=== PATIENT | female | born 1980 | race Hispanic/Latino ===

== ENCOUNTER 2018-12-20 15:06 | Emergency (ER) | payer MEDICAID ==
[2018-12-20] MEDS ORDERED: ACETAMINOPHEN EXTRA STRENGTH 500 MG TABLET ONE (15:42)
[2018-12-20 15:46] LABS: BASOPHILS % (AUTO) 0.2 % (0.0-5.0); EOSINOPHILS % (AUTO) 0.3 % (0.0-8.0); HEMATOCRIT 31.5 % (36-48); LYMPHOCYTES % (AUTO) 5.6 % (21.0-51.0); MEAN CORPUSCULAR HEMOGLOBIN 24.3 pg (27.0-33.0); MEAN CORPUSCULAR HGB CONC 32.6 g/dL (32.0-36.0); MEAN CORPUSCULAR VOLUME 74.4 fL (79-99); MONOCYTES % (AUTO) 5.9 % (3.0-13.0); PLATELET COUNT (AUTO) 430 K/uL (130-400); RED BLOOD CELL COUNT(AUTO) 4.23 MIL/uL (4.00-5.50); RED CELL DISTRIBUTION WIDTH 16.3 % (11.0-15.5); WHITE BLOOD COUNT (AUTO) 15.1 K/uL (4.8-10.8)
[2018-12-20 15:56] LABS: CREATININE 0.9 mg/dL (0.5-1.5); POTASSIUM 4.1 mmol/L (3.5-5.1)
[2018-12-20 16:00] LABS: ALBUMIN 2.8 g/dL (3.5-5.0); BILIRUBIN,TOTAL 0.3 mg/dL (0.2-1.0)
[2018-12-20 16:13] LABS: B-TYPE NATRIURETIC PEPTIDE 30 pg/mL (0-100)
[2018-12-20 16:18] LABS: APPEARANCE,URINE Cloudy (CLEAR); BILIRUBIN,URINE Negative (NEGATIVE); COLOR,URINE Dark Yellow (YELLOW); GLUCOSE, URINE (UA) Negative (NEGATIVE); KETONES,URINE Trace mg/dL (NEGATIVE); LEUKOCYTE ESTERASE ,URINE Small (NEGATIVE); NITRATE,URINE Negative (NEGATIVE); OCCULT BLOOD,URINE Negative (NEGATIVE); PH,URINE 5.5 (5.0-8.0); PROTEIN,URINE POS 2+ mg/dL (NEGATIVE)
[2018-12-20 16:23] LABS: HCG,QUAL RESULT NEGATIVE (NEGATIVE)
[2018-12-20 16:51] LABS: BACTERIA,URINE Moderate /HPF (None Seen)
[2018-12-20 16:52] LABS: RBC,URINE 0-1 /HPF (0-1)
[2018-12-20 17:29] LABS: ERYTHROCYTE SEDIMENTATION RATE 95 MM/HR (0-20)
== END 2018-12-20 17:50 | disposition home or self-care (01) ==
LOC: EDH 15:06
DX: R60.0 Localized edema (principal); R50.9 Fever, unspecified; R23.8 Other skin changes; Z87.891 Personal history of nicotine dependence
CPT/HCPCS: 36415; 80053; 81001; 81025; 83880; 85025; 85651

== ENCOUNTER 2019-02-20 22:33 | Inpatient (IN) | payer MEDICAID ==
[~2019-02-20] VITALS: Ht 157.5 cm; Wt 102.5 kg
[2019-02-20 23:06] LABS: BILIRUBIN,URINE Negative (NEGATIVE); COLOR,URINE Yellow (YELLOW); GLUCOSE, URINE (UA) Negative (NEGATIVE); KETONES,URINE Negative (NEGATIVE); LEUKOCYTE ESTERASE ,URINE Trace (NEGATIVE); NITRATE,URINE Negative (NEGATIVE); OCCULT BLOOD,URINE Moderate (NEGATIVE); PROTEIN,URINE POS 1+ mg/dL (NEGATIVE)
[2019-02-20 23:09] LABS: APPEARANCE,URINE SLIGHTLY CLOUDY (CLEAR); HCG,QUAL RESULT NEGATIVE (NEGATIVE)
[2019-02-20 23:22] LABS: BACTERIA,URINE None Seen /HPF (None Seen); SQUAMOUS EPITHELIAL CELL,UR Rare /HPF (0-2); WBC,URINE 0-1 /HPF (0-1)
[2019-02-20] MEDS ORDERED: ONDANSETRON HCL 4 MG/2 ML VIAL ONE (23:41)
[2019-02-20] MEDS ORDERED: FAMOTIDINE/PF 20 MG/2 ML VIAL IV ONE (23:41)
[2019-02-20] MEDS ORDERED: SODIUM CHLORIDE 0.9% 1000ML 1,000 ML IV ONE (23:41)
[2019-02-20 23:49] LABS: BASOPHILS % (AUTO) 0.6 % (0.0-5.0); EOSINOPHILS % (AUTO) 0.2 % (0.0-8.0); HEMATOCRIT 34.8 % (36-48); LYMPHOCYTES % (AUTO) 5.3 % (21.0-51.0); MEAN CORPUSCULAR HEMOGLOBIN 24.2 pg (27.0-33.0); MEAN CORPUSCULAR HGB CONC 31.9 g/dL (32.0-36.0); MEAN CORPUSCULAR VOLUME 75.9 fL (79-99); MONOCYTES % (AUTO) 5.1 % (3.0-13.0); NEUTROPHILS % (AUTO) 88.8 % (40.0-77.0); PLATELET COUNT (AUTO) 319 K/uL (130-400); RED BLOOD CELL COUNT(AUTO) 4.58 MIL/uL (4.00-5.50); RED CELL DISTRIBUTION WIDTH 16.7 % (11.0-15.5); WHITE BLOOD COUNT (AUTO) 15.7 K/uL (4.8-10.8)
[2019-02-20 23:57] LABS: CREATININE 1.1 mg/dL (0.5-1.5); POTASSIUM 4.7 mmol/L (3.5-5.1)
[2019-02-20 23:58] LABS: INR 0.95 (0.85-1.15); PARTIAL THROMBOPLASTIN TIME 28.8 SEC (26.3-35.5)
[2019-02-21 00:03] LABS: ALBUMIN 3.5 g/dL (3.5-5.0); BILIRUBIN,TOTAL 0.4 mg/dL (0.2-1.0); TOTAL PROTEIN, SERUM 7.9 g/dL (6.0-8.3)
[2019-02-21] MEDS ORDERED: KETOROLAC TROMETHAMINE 30MG/ML ONE (00:49)
[2019-02-21] MEDS ORDERED: MORPHINE SULFATE 2 MG/ML 1ML SYG IV PRN (01:15)
[2019-02-21] MEDS ORDERED: ONDANSETRON HCL 4 MG/2 ML VIAL IV PRN (01:15)
[2019-02-21] MEDS ORDERED: ZOSYN 3.375GM+NS 50ML 50 ML IV ONE (01:25)
[2019-02-21] MEDS ORDERED: LACTATED RINGERS 1000ML 1,000 ML IV ONE (01:26)
[2019-02-21 02:09] LABS: CHOLESTEROL 172 mg/dL (<200); HDL CHOLESTEROL 149 mg/dL (35-85); LDL DIRECT 97 mg/dL (0-99); TRIGLYCERIDES 134 mg/dL (30-200)
[2019-02-21] MEDS ORDERED: PHARMACY COMMUNICATION MISC SCH (02:15)
[2019-02-21] MEDS: ZOSYN 3.375GM+NS 50ML 50 ML IV SCH ×3 (05:00→20:46)
[2019-02-21 05:45] VITALS: BP 156/93
[2019-02-21] MEDS: LACTATED RINGERS 1000ML 1,000 ML IV SCH ×3 (06:17→22:57)
[2019-02-21] MEDS ORDERED: IBUP-2353 PO (06:37)
[2019-02-21] MEDS ORDERED: OMEP-50 PO (06:37)
--- NOTE | 2019-02-21 06:44 | NUR ---
ADMIT PT ADMITTED TO ROOM 313, AAOX3. NO DISTRESS NOTED. ADMISSION CARE DONE.ADMISSION DATA BASE COMPLETED. PLACED NPO. CONTINUED IVF OF LR FROM ER REGULATED AT 125CC/HR. ORIENTED TO ROOM AND UNIT. IN FOR MORE CARE AND MANAGEMENT. Addendum: 02/21/19 at 0646 by ELVIRA COLINDRES RN RN Amended: Links added.
[2019-02-21 08:00] VITALS: BP 137/89
[2019-02-21] MEDS: ENOXAPARIN SODIUM 40 MG/0.4 ML SYRINGE SQ SCH (09:41)
[2019-02-21] MEDS: FAMOTIDINE/PF 20 MG/2 ML VIAL IV SCH ×2 (09:41→20:46)
[2019-02-21 12:00] VITALS: BP 138/79
[2019-02-21] MEDS ORDERED: HYDRALAZINE HCL 20 MG/ML VIAL IV PRN (15:00)
[2019-02-21 16:00] VITALS: BP 133/84
--- NOTE | 2019-02-21 16:50 | NUR ---
ATTEMPTED INITIAL PT FAST ASLEEP- EYES CLOSED, RESPRATIONS DEEP AND REGULAR OPTED NOT TO DISTURB AT THIS TIME GIVEN DX OF PANCREATITIS/ABD PAIN, WILL VISIT IN AM Addendum: 02/21/19 at 1852 by DANILO DELGADILLO RN CM Amended: Links added.
[2019-02-21 20:00] VITALS: BP 152/87
[2019-02-21] MEDS: ATORVASTATIN CALCIUM 40 MG TABLET PO SCH (20:46)
--- NOTE | 2019-02-21 20:50 | NUR ---
MEDS SHIFT ASSESSMENT DONE, PLEASE REFER TO CHART. DUE MEDS ADMINISTERED, TOLERATED WELL. KEPT NPO. KEPT RESTED AND COMFORTABLE. CALL LIGHT WITHIN REACH. WILL MONITOR PT. Addendum: 02/21/19 at 2313 by ELVIRA COLINDRES RN RN Amended: Links added.
[2019-02-21 23:59] VITALS: BP 140/90
--- NOTE | 2019-02-22 02:00 | NUR ---
ROUNDS PT RESTING WELL. NO DISTRESS NOTED. NO CONCERNS VERBALIZED. KEPT UNDISTURBED FOR NOW. WILL MONITOR PT.
[2019-02-22 03:51] VITALS: BP 151/84
[2019-02-22] MEDS: ZOSYN 3.375GM+NS 50ML 50 ML IV SCH ×3 (04:37→22:05)
[2019-02-22] MEDS: LACTATED RINGERS 1000ML 1,000 ML IV SCH ×3 (05:00→19:54)
[2019-02-22 05:46] LABS: BASOPHILS % (AUTO) 0.2 % (0.0-5.0); EOSINOPHILS % (AUTO) 1.6 % (0.0-8.0); HEMATOCRIT 32.3 % (36-48); LYMPHOCYTES % (AUTO) 12.4 % (21.0-51.0); MEAN CORPUSCULAR HEMOGLOBIN 24.3 pg (27.0-33.0); MEAN CORPUSCULAR HGB CONC 31.8 g/dL (32.0-36.0); MEAN CORPUSCULAR VOLUME 76.4 fL (79-99); MONOCYTES % (AUTO) 7.5 % (3.0-13.0); NEUTROPHILS % (AUTO) 78.3 % (40.0-77.0); NUCLEATED RED BLOOD CELLS 0.1 % (0.0-0.19); PLATELET COUNT (AUTO) 282 K/uL (130-400); RED BLOOD CELL COUNT(AUTO) 4.23 MIL/uL (4.00-5.50); RED CELL DISTRIBUTION WIDTH 16.5 % (11.0-15.5)
[2019-02-22 05:59] LABS: CREATININE 1.2 mg/dL (0.5-1.5); POTASSIUM 4.3 mmol/L (3.5-5.1)
[2019-02-22 08:00] VITALS: BP 160/74
[2019-02-22] MEDS: FAMOTIDINE/PF 20 MG/2 ML VIAL IV SCH ×2 (09:22→22:05)
[2019-02-22] MEDS: ENOXAPARIN SODIUM 40 MG/0.4 ML SYRINGE SQ SCH (09:25)
[2019-02-22 11:47] VITALS: BP 154/88
--- NOTE | 2019-02-22 13:35 | NUR ---
TAKEN OFF THE UNIT AT THIS TIME TO NUCLEAR MED FOR HIDA SCAN.
[2019-02-22 16:00] VITALS: BP_SYST 153; BP_SYST 161; BP_DIAS 85; BP_DIAS 91
--- NOTE | 2019-02-22 16:30 | NUR ---
Taking over pt's care. She is lying comfortable in bed, stated she is not in so much pain as before.
[2019-02-22 20:00] VITALS: BP 144/86
--- NOTE | 2019-02-22 20:00 | NUR ---
Hida scan results reported to Dr Kan, he said there is no need to keep pt NPO and to go ahead and continue clear liquid diet.
[2019-02-22] MEDS: ATORVASTATIN CALCIUM 40 MG TABLET PO SCH (22:05)
[2019-02-23] VITALS: BP 155/98
[2019-02-23] MEDS: LACTATED RINGERS 1000ML 1,000 ML IV SCH ×2 (01:39→08:13)
[2019-02-23 04:00] VITALS: BP 159/86
[2019-02-23] MEDS: ZOSYN 3.375GM+NS 50ML 50 ML IV SCH ×2 (04:36→12:57)
[2019-02-23 04:55] LABS: HEMATOCRIT 32.8 % (36-48); MEAN CORPUSCULAR HGB CONC 32.8 g/dL (32.0-36.0); MEAN CORPUSCULAR VOLUME 76.1 fL (79-99); PLATELET COUNT (AUTO) 317 K/uL (130-400); RED BLOOD CELL COUNT(AUTO) 4.31 MIL/uL (4.00-5.50); RED CELL DISTRIBUTION WIDTH 16.5 % (11.0-15.5); WHITE BLOOD COUNT (AUTO) 8.9 K/uL (4.8-10.8)
[2019-02-23 05:07] LABS: ALBUMIN 2.9 g/dL (3.5-5.0); BILIRUBIN,TOTAL 0.3 mg/dL (0.2-1.0); CREATININE 1.2 mg/dL (0.5-1.5); POTASSIUM 3.5 mmol/L (3.5-5.1)
[2019-02-23 08:02] VITALS: BP 158/91
--- NOTE | 2019-02-23 08:43 | NUR ---
SAPNA JAUREGUI PRESENT, SPOKE TO PATIENT. NO NEED FOR SURGICAL INTERVENTION AT THIS TIME. PATIENT MAYBE BE DISCHARGE FROM SURGICAL STAND POINT.
[2019-02-23] MEDS: ENOXAPARIN SODIUM 40 MG/0.4 ML SYRINGE SQ SCH (09:14)
[2019-02-23] MEDS: FAMOTIDINE/PF 20 MG/2 ML VIAL IV SCH (09:14)
[2019-02-23] MEDS ORDERED: ATOR40TA69 PO (11:13)
[2019-02-23 11:14] VITALS: BP 150/93
--- NOTE | 2019-02-23 15:47 | NUR ---
DISCHARGE PATIENT GIVEN DISCHARGE INSTRUCTIONS VIA TEACH BACK. 22G PIV TO LEFT WRIST DISCONTINUED, TIP INTACT. RX GIVEN FOR LIPITOR. PATIENT WITH FOLLOW UP APPOINTMENT AT [facility] WITH DR. ALLEN. PATIENT STABLE, AWAITING TRANSPORTATION HOME.
--- NOTE | 2019-02-23 16:27 | NUR ---
INIITIAL Met aisha pt, alone, aaox3, LW juanito, drives, indp w ADL's, no DME, disables- stats"I get SSI ever since I was little" here [facility] home, [facility] Kline to provide transport Addendum: 02/23/19 at 1629 by DANILO DELGADILLO RN CM Amended: Links added.
--- NOTE | 2019-02-23 16:58 | NUR ---
DISCHARGE PATIENT'S NEPHEW PRESENT TO TRANSPORT PATIENT HOME. PATIENT STABLE AT THIS TIME.
== END 2019-02-23 16:57 | disposition home or self-care (01) | DRG 282 ==
LOC: EDH 22:33 → EDHIP 22:34 → 3CH 02-21 05:36
PROVIDERS: ADMIT Internal Medicine; ATTEND Internal Medicine
DX: K85.90 Acute pancreatitis without necrosis or infection, unspecified (principal); K81.0 Acute cholecystitis; E66.01 Morbid (severe) obesity due to excess calories; N39.0 Urinary tract infection, site not specified; B96.81 Helicobacter pylori [H. pylori] as the cause of diseases classified elsewhere; K82.8 Other specified diseases of gallbladder; Z68.41 Body mass index [BMI] 40.0-44.9, adult; Q63.1 Lobulated, fused and horseshoe kidney
CPT/HCPCS: 36415; 71045; 74176; 76705; 78227; 80048; 80053; 80061; 81001; 81025; 82150; 82550; 83690; 84484; 85025; 85027; 85610; 85730; 86677; 93005; A9537; G0378; J1650; J1885; J2405; J2543; J3490; J7030; J7120

== ENCOUNTER 2020-10-04 10:08 | Emergency (ER) | payer MEDICAID ==
[~2020-10-04 10:08] MED LIST: ATOR40TA69 PO; IBUP-2784 PO; OMEP20CA12 PO
[2020-10-04] MEDS ORDERED: HYDROCODONE/ACETAMINOPHEN 10/325 MG TAB ONE (10:36)
[2020-10-04 10:59] LABS: BASOPHILS % (AUTO) 0.2 % (0.0-5.0); EOSINOPHILS % (AUTO) 0.7 % (0.0-8.0); LYMPHOCYTES % (AUTO) 11.2 % (21.0-51.0); MEAN CORPUSCULAR HEMOGLOBIN 26.2 pg (27.0-33.0); MEAN CORPUSCULAR HGB CONC 31.9 g/dL (32.0-36.0); MONOCYTES % (AUTO) 9.2 % (3.0-13.0); NEUTROPHILS % (AUTO) 78.3 % (40.0-77.0); PLATELET COUNT (AUTO) 285 K/uL (130-400); RED BLOOD CELL COUNT(AUTO) 4.51 MIL/uL (4.00-5.50); RED CELL DISTRIBUTION WIDTH 14.6 % (11.0-15.5); WHITE BLOOD COUNT (AUTO) 9.6 K/uL (4.8-10.8)
[2020-10-04 11:18] LABS: ALBUMIN 3.5 g/dL (3.5-5.0); BILIRUBIN,TOTAL 0.3 mg/dL (0.2-1.0); TOTAL PROTEIN, SERUM 6.8 g/dL (6.0-8.3)
[2020-10-04 11:57] LABS: APPEARANCE,URINE Cloudy (CLEAR); BILIRUBIN,URINE Negative (NEGATIVE); COLOR,URINE Yellow (YELLOW); GLUCOSE, URINE (UA) Negative (NEGATIVE); KETONES,URINE Negative (NEGATIVE); LEUKOCYTE ESTERASE ,URINE Small (NEGATIVE); NITRATE,URINE Negative (NEGATIVE); OCCULT BLOOD,URINE Small (NEGATIVE); PH,URINE 5.5 (5.0-8.0); PROTEIN,URINE Trace mg/dL (NEGATIVE)
[2020-10-04 12:00] LABS: HCG,QUAL RESULT NEGATIVE (NEGATIVE)
[2020-10-04 12:07] LABS: BACTERIA,URINE Moderate /HPF (None Seen); RBC,URINE 0-1 /HPF (0-1)
[2020-10-04 12:08] LABS: SQUAMOUS EPITHELIAL CELL,UR Many /HPF (0-2)
[2020-10-04] MEDS ORDERED: LIDOCAINE HCL-MPF 1% 2ML VIAL ONE (13:05)
[2020-10-04] MEDS ORDERED: CEFTRIAXONE SODIUM 1 GM ONE (13:05)
== END 2020-10-04 13:55 | disposition home or self-care (01) ==
LOC: EDH 10:08
DX: J18.9 Pneumonia, unspecified organism (principal); Z72.0 Tobacco use; Z98.890 Other specified postprocedural states
CPT/HCPCS: 36415; 71046; 80053; 81001; 81025; 84484; 85025; 85378; 87088; 93005; 96372; 99285; J0696; J3490

== ENCOUNTER 2021-06-07 21:35 | Emergency (ER) | payer MEDICAID ==
[~2021-06-07] VITALS: Ht 157.5 cm; Wt 102.1 kg
[2021-06-07 21:47] VITALS: BP 168/87
[2021-06-07] MEDS ORDERED: KETOROLAC 60 MG VIAL (30MG/ML) IM ONE (22:00)
[2021-06-07] MEDS ORDERED: ORPHENADRINE CITRATE 30 MG/ML ML IM ONE (22:00)
[2021-06-07] MEDS ORDERED: ORPHENADRINE CITRATE 30 MG/ML ML ONE (22:10)
[2021-06-07] MEDS ORDERED: KETOROLAC 60 MG VIAL (30MG/ML) ONE (22:10)
[2021-06-07] MEDS ORDERED: CYCL-309 PO (22:13)
[2021-06-07] MEDS ORDERED: IBUP-2070 PO (22:13)
== END 2021-06-07 22:23 | disposition home or self-care (01) ==
LOC: EDH 21:35
DX: M54.50 Low back pain, unspecified (principal); I10 Essential (primary) hypertension; E66.9 Obesity, unspecified; Z68.41 Body mass index [BMI] 40.0-44.9, adult; Z79.1 Long term (current) use of non-steroidal anti-inflammatories (NSAID); Z79.899 Other long term (current) drug therapy
CPT/HCPCS: 96372 ×2; 99284; J1885; J2360

== ENCOUNTER 2024-07-30 15:06 | Emergency (ER) | payer MEDICAID ==
[~2024-07-30] VITALS: Ht 157.5 cm; Wt 115.2 kg
[~2024-07-30 15:06] MED LIST changes: +CYCL-309 PO; +IBUP-2070 PO
--- NOTE | 2024-07-30 16:24 | NUR ---
abcess to ll labia to be oppened and drained by food chemist estuardo
[2024-07-30 16:26] VITALS: BP 160/105; PULSE 100; RESP 16; TEMP 98.3; O2SAT 98
[2024-07-30] MEDS: LIDOCAINE HCL 1% 20 ML VIAL INJ STA (16:59)
[2024-07-30] MEDS: HYDROcodone/APAP 5/325 1 TAB TABLET PO STA (17:00)
[2024-07-30] MEDS ORDERED: SULF1TAB42 PO (17:00)
--- NOTE | 2024-07-30 17:00 | ERN ---
ED Note History of Present Illness Stated Complaint: ABCESS Chief Complaint: Abscess Time Seen by MD: 15:10 Time Seen by Midlevel: 15:14 Dictation: 44-year-old female with a history of hypertension coming in complaining of an abscess to her vaginal area that has been going on for one year states progressively gotten bigger and now complaining of pain to the area. Denies having any fever, nausea or vomiting. Allergies: Coded Allergies: No Known Drug Allergies (Verified Allergy, 03/27/13) Home Meds Active Scripts Sulfamethoxazole/Trimethoprim (Bactrim Ds Tablet) 800 Mg-160 Mg Tablet, 1 TAB PO BID for 7 Days, #14 TAB 0 Refills Prov:CASTILLO CISNEROS MANAGER [employer] 07/30/24 Cyclobenzaprine HCl (Cyclobenzaprine HCl) 10 Mg Tablet, 10 MG PO TID PRN for muscle spasm, #15 TAB 0 Refills Prov:CRYSTAL BREWER MD 06/07/21 Ibuprofen (Ibuprofen) 600 Mg Tablet, 600 MG PO Q6H PRN for PAIN, #30 TAB 0 Refills Prov:CRYSTAL BREWER MD 06/07/21 Atorvastatin Calcium (LIPITOR) 40 Mg Tablet, 40 MG PO HS for 15 Days, TAB Prov:FELIBERTO ADRIAN MANAGER TE[employer]ICAL [employer] 02/23/19 Reported Medications Omeprazole (Omeprazole) 20 Mg Capsule.dr, 20 MG PO DAILY PRN for HEARTBURN, CAP 02/21/19 Ibuprofen (Ibuprofen 200 mg Tablet) 200 Mg Tablet, 200 MG PO Q4HPRN PRN for PAIN LEVEL 1 TO 5, TAB 02/21/19 Past Medical History Past Medical History: Hypertension Surgical History: BTL, LMP: Jun 29, 2024 Review of System Dictation Constitutional: Negative for fever,chills, and weight loss Eyes: Negative for injury, pain,redness, and discharge ENT: Negative for injury,pain or swelling Cardiovascular: Negative for chest pain, palpitations, and edema Respiratory: Negative for shortness of breath, cough, and wheezing, Abdomen/GI: Negative for abdominal pain, nausea, vomiting, diarrhea, and constipation Back: Negative for injury and pain : Negative for injury, bleeding and discharge complaining of lump to the vaginal area with pain MS/Extremity: Negative for injury and deformity Skin: Negative for rash, and discoloration Neuro: Negative for headache, weakness, numbness, tingling, and seizure Psych: Negative for suicide ideation, homicidal ideation, and hallucinations Review of Systems: was completed Initial Vital Sign VS Vital Signs Date Time Temp Pulse Resp B/P (MAP) Pulse Ox O2 Delivery O2 Flow Rate FiO2 07/30/24 15:20 98.1 105 16 163/114 100 Room Air 0 07/30/24 16:26 21 Physical Exam Dictation General: awake, alert, NAD Head/Face: Normocephalic, atraumatic Eyes: PERRL, EOMI, vision at baseline ENT: oral cavity clear, TMs clear, no signs of infection Neck: Trachea midline, supple, no nuchal rigidity Cardiovascular: RRR, normal S1/S2, No MRGs, no JVD Respiratory: CTAB, no respiratory distress, No rales or wheezes Abdomen: Soft, non-tender, non-distended, normal bowel sounds, no guarding or rebound. Skin: Warm, dry, normal turgor, no rash MS/Extremity: Pulses equal, no cyanosis, neurovascular intact, FROM Neuro: COAx4, GCS 15, strength 5/5, CN 2-12 intact, normal cerebellar exam, normal gait, Psych: Normal behavior, mood, and affect normal Findings consistent with Bartholin cyst left labia ED Course ED Course Medical Decision Making MDM MDM: 44-year-old female with a history of hypertension coming in complaining of an abscess to her vaginal area that has been going on for one year states progressively gotten bigger and now complaining of pain to the area. Denies having any fever, nausea or vomiting. See I and D note for procedure. Does not custody on keeping area cleaned with the patient and taking antibiotics as prescribed. Educated on signs and symptoms of when to return back to the ER. Patient verbalized understanding, answered all questions. Differential diagnosis: Cellulitis, Bartholin cyst, Rationale: Tests considered and ordered secondary to shared decision making include: Previous outside records reviewed: Old ER visits. Risk of complication and/or morbidity or mortality of patient management: None Medications-Per medication reconciliation Need for hospitalization: Patient does not meet criteria for hospitalization. Need for emergency major/minor surgery: No There are no social concerns with this patient. Prescription drug management Prescriptions will include symptomatic care Patient's prior external medical records from other ER visits were reviewed by me as indicated. Prior testing and results from previous visits were reviewed. Prior tests were taken into account with medical decision making and resource utilization, independent historian/historians were used to obtain complete medical history. I independently interpreted the test that were performed, results were reviewed by me and considered findings on radiology if ordered. Medical management and examination interpretation discussions were had by me with other qualified healthcare professionals as indicated for the patient's care. Procedure Site: Bartholin cyst Blade Size: 11 I & D Procedure: no betadine prep DX & DISP Disposition: Discharge Departure Impression: Primary Impression: Bartholin cyst Condition: Stable Scripts Sulfamethoxazole/Trimethoprim (Bactrim Ds Tablet) 800 Mg-160 Mg Tablet 1 TAB PO BID for 7 Days, #14 TAB 0 Refills Prov: CASTILLO CISNEROS NP 07/30/24 Additional Instructions: Please keep area clean and dry. You can use warm compresses to help with drainage. Take antibiotics as prescribed. You can take Tylenol or Motrin [id number] for pain control. If you start to develop any fevers, nausea or vomiting please report back to the emergency room. Referrals: SELF,REFERRAL (PCP) Time of Disposition: 16:59 I have reviewed the case, and I agree with, Diagnosis and Plan I performed the substantive portion of the visit. I have reviewed and personally made and approve the management plan that is documented in the notes by myself or the JILLIAN. I acknowledge full responsibility for the patient's management plan. CASTILLO CISNEROS NP Jul 30, 2024 17:00 MARANDA GALVEZ MD Aug 05, 2024 13:07
== END 2024-07-30 17:08 | disposition home or self-care (01) ==
LOC: EDH 15:06
DX: N75.0 Cyst of Bartholin's gland (principal); I10 Essential (primary) hypertension; Z79.899 Other long term (current) drug therapy; Z98.51 Tubal ligation status; Z98.890 Other specified postprocedural states
CPT/HCPCS: 56420; 99284